=== PATIENT | male | born 1995 | race Two or more races ===

== ENCOUNTER 2018-04-18 18:59 | Emergency (ER) | payer SELFPAY ==
[~2018-04-18] VITALS: Ht 167.6 cm; Wt 88.2 kg
[2018-04-18 19:02] VITALS: BP 126/75
[2018-04-18 20:04] LABS: MICROSCOPIC INDICATED
[2018-04-18 20:05] LABS: CULTURE INDICATED? YES
== END 2018-04-18 21:33 | disposition home or self-care (01) ==
LOC: ED 20:46
DX: N45.1 Epididymitis (principal)
CPT/HCPCS: 76870; 81001; 87086; 87491; 87591; 99285

== ENCOUNTER 2018-05-13 19:02 | Emergency (ER) | payer SELFPAY ==
[~2018-05-13] VITALS: Ht 172.7 cm; Wt 80.0 kg
[2018-05-13 19:36] VITALS: BP 132/93
[2018-05-13] MEDS ORDERED: MAALOX/HYOSCYAMINE/LIDOCAINE 45 ML BTL ONE (19:59)
[2018-05-13] MEDS ORDERED: ONDANSETRON ODT 4 MG ONE (19:59)
[2018-05-13] MEDS ORDERED: PROMETHAZINE 25 MG/ML, 1ML ONE (19:59)
[2018-05-13] MEDS ORDERED: MAALOX/HYOSCYAMINE/LIDOCAINE 45 ML BTL PO ONE (20:00)
[2018-05-13] MEDS ORDERED: ONDANSETRON ODT 4 MG PO ONE (20:00)
[2018-05-13] MEDS ORDERED: METOCLOPRAMIDE 5 MG/ML, 2ML IVPush ONE (20:00)
[2018-05-13] MEDS ORDERED: DIPHENHYDRAMINE 50 MG/ML, 1ML IVPush ONE (20:00)
[2018-05-13] MEDS ORDERED: SODIUM CHLORIDE FLUSH 10ML SYR IVF ONE (20:00)
[2018-05-13] MEDS ORDERED: CAPSAICIN CRM 0.075%, 60GM TP ONE (20:00)
[2018-05-13 20:01] LABS: BASOPHILS # (AUTO) 0.01 x10^3/uL (0-0.1); BASOPHILS % (AUTO) 0 % (0-1); EOSINOPHILS # (AUTO) 0.14 x10^3/uL (0-0.4); EOSINOPHILS % (AUTO) 3 % (1-7); LYMPHOCYTES # (AUTO) 1.01 x10^3/uL (1-3.4); LYMPHOCYTES % (AUTO) 20 % (22-44); MD NO; MEAN CORPUSCULAR HEMOGLOBIN 29.1 pg (27.5-34.5); MEAN CORPUSCULAR HGB CONC 34.1 g/dL (33.2-36.2); MEAN CORPUSCULAR VOLUME 85.5 fL (81-97); MEAN PLATELET VOLUME 9.2 fL (7.4-10.4); MONOCYTES % (AUTO) 6 % (2-9); NEUTROPHILS # (AUTO) 3.71 x10^3/uL (1.8-6.8); NEUTROPHILS % (AUTO) 72 % (42-75); PLATELET COUNT 216 x10^3/uL (130-400); RED BLOOD COUNT 5.79 x10^6/uL (4.38-5.82); RED CELL DISTRIBUTION WIDTH 13.7 % (9.4-14.8)
[2018-05-13 20:11] LABS: ALANINE AMINOTRANSFERASE 20 U/L (12-78); ALBUMIN 4.2 g/dL (3.4-5.0); ANION GAP 8 mmol/L (5-15); CHLORIDE 108 mmol/L (98-107); CREATININE 0.93 mg/dL (0.7-1.3)
[2018-05-13 20:14] LABS: ALKALINE PHOSPHATASE 82 U/L (45-117); BILIRUBIN,TOTAL 0.3 mg/dL (0.2-1.0); TOTAL PROTEIN 7.7 g/dL (6.4-8.2)
[2018-05-13] MEDS ORDERED: PROMETHAZINE 25 MG/ML, 1ML IM ONE (20:30)
== END 2018-05-13 21:46 | disposition home or self-care (01) ==
LOC: ED 20:53
DX: K25.3 Acute gastric ulcer without hemorrhage or perforation (principal)
CPT/HCPCS: 36415; 80053; 83690; 85025; 86677; 96372; 99283; J2550; Q0162

== ENCOUNTER 2018-12-13 19:38 | Emergency (ER) | payer SELFPAY ==
[~2018-12-13] VITALS: Ht 167.6 cm; Wt 88.0 kg
[2018-12-13 20:52] LABS: BASOPHILS # (AUTO) 0.03 x10^3/uL (0-0.1); BASOPHILS % (AUTO) 1 % (0-1); EOSINOPHILS # (AUTO) 0.11 x10^3/uL (0-0.4); EOSINOPHILS % (AUTO) 2 % (1-7); LYMPHOCYTES # (AUTO) 1.31 x10^3/uL (1-3.4); LYMPHOCYTES % (AUTO) 25 % (22-44); MD NO; MEAN CORPUSCULAR HGB CONC 33.4 g/dL (33.2-36.2); MEAN CORPUSCULAR VOLUME 89.6 fL (81-97); MONOCYTES % (AUTO) 6 % (2-9); NEUTROPHILS % (AUTO) 67 % (42-75); PLATELET COUNT 224 x10^3/uL (130-400); RED BLOOD COUNT 5.66 x10^6/uL (4.38-5.82); RED CELL DISTRIBUTION WIDTH 13.5 % (9.4-14.8)
[2018-12-13 21:04] LABS: ALANINE AMINOTRANSFERASE 29 U/L (12-78); ALBUMIN 4.5 g/dL (3.4-5.0); ANION GAP 6 mmol/L (5-15); CALCIUM 9.4 mg/dL (8.5-10.1); CHLORIDE 108 mmol/L (98-107); CREATININE 0.91 mg/dL (0.7-1.3)
[2018-12-13 21:06] LABS: ALKALINE PHOSPHATASE 92 U/L (45-117); BILIRUBIN,TOTAL 0.4 mg/dL (0.2-1.0); TOTAL PROTEIN 7.9 g/dL (6.4-8.2)
--- NOTE | 2018-12-13 21:11 | NUR ---
PT HERE FOR ABD PAIN, LACK OF APPITITE, DARK BLOODY STOOL SINCE LAST WEEK. PT HAS HX OF STOMACH ULCER. MONITORS APPLIED, SIDERAILS UP X2, CALL LIGHT WITHIN REACH
[2018-12-13] MEDS ORDERED: ONDANSETRON ODT 4 MG ONE (21:25)
[2018-12-13] MEDS ORDERED: MAALOX/HYOSCYAMINE/LIDOCAINE 45 ML BTL ONE (21:25)
--- NOTE | 2018-12-13 21:28 | NUR ---
ERP AT BEDSIDE FOR ANOSCOPY
[2018-12-13] MEDS ORDERED: ONDANSETRON ODT 4 MG PO ONE (21:30)
[2018-12-13] MEDS ORDERED: MAALOX/HYOSCYAMINE/LIDOCAINE 45 ML BTL PO ONE (21:30)
--- NOTE | 2018-12-13 21:31 | NUR ---
PT MEDICATED PER MAR
[2018-12-13 22:27] VITALS: BP 109/67
== END 2018-12-13 22:39 | disposition home or self-care (01) ==
LOC: ED 21:02
DX: K64.8 Other hemorrhoids (principal); K29.00 Acute gastritis without bleeding; K62.5 Hemorrhage of anus and rectum
CPT/HCPCS: 36415; 80053; 83690; 85025; 99284; Q0162

== ENCOUNTER 2019-07-29 08:03 | Emergency (ER) | payer MEDICAID ==
[~2019-07-29] VITALS: Ht 165.1 cm; Wt 81.6 kg
[2019-07-29 08:06] VITALS: BP 139/86
[2019-07-29] MEDS ORDERED: ONDANSETRON ODT 8 MG ONE (08:40)
--- NOTE | 2019-07-29 08:46 | NUR ---
PT WITH C/O N/V/D X 1 WEEK STATES IT HAS GOTTON WORSE OVER LAST COUPLE DAYS SO HE DECIDED TO COME TO ER. PT STATES HE HAS GENERALIZED BODY ACHES.
[2019-07-29] MEDS ORDERED: ONDANSETRON ODT 8 MG PO ONE (09:00)
== END 2019-07-29 10:48 | disposition home or self-care (01) ==
LOC: ED 09:14
DX: J06.9 Acute upper respiratory infection, unspecified (principal); R11.2 Nausea with vomiting, unspecified
CPT/HCPCS: 93005; 99283; Q0162

== ENCOUNTER 2020-06-21 14:00 | Emergency (ER) | payer OTHER, MEDICAID ==
[~2020-06-21] VITALS: Ht 165.1 cm; Wt 91.7 kg
[2020-06-21 14:03] VITALS: BP 124/66
--- NOTE | 2020-06-21 16:13 | NUR ---
GEOLOGY PROFESSOR: PT AMBULATORY TO ROOM FROM LOBBY
== END 2020-06-21 17:24 | disposition home or self-care (01) ==
LOC: ED 17:00
DX: S62.235A Other nondisplaced fracture of base of first metacarpal bone, left hand, initial encounter for closed fracture (principal); Z87.11 Personal history of peptic ulcer disease; X58.XXXA Exposure to other specified factors, initial encounter; Y93.89 Activity, other specified; Y92.410 Unspecified street and highway as the place of occurrence of the external cause; Y99.0 Civilian activity done for income or pay
CPT/HCPCS: 29125; 99283